=== PATIENT | male | born 1935 | race Caucasian/White ===

== ENCOUNTER 2016-07-22 11:06 | Emergency (ER) | payer MEDICARE ==
--- NOTE | 2016-07-22 11:11 | ER Document Report ---
ED Medical Screen (RME) - General Stated Complaint: SKIN ISSUE Mode of Arrival: Wheelchair Information source: Patient Notes: Patient presents complaining of rash to bilateral feet. Patient states rash is better for 2 months, family member states that his been there for 4 days. Family suspects that it is poison oak as he has recently been doing yard work I have greeted and performed a rapid initial assessment of this patient. A comprehensive ED assessment and evaluation of the patient, analysis of test results and completion of the medical decision making process will be conducted by additional ED providers. TRAVEL OUTSIDE OF THE [place] IN LAST 30 DAYS: No - Related Data Allergies/Adverse Reactions: Penicillins Allergy (Intermediate, Verified 07/22/16 11:09) hives and welts Past Medical History - Past Medical History Cardiac Medical History: Reports: Hx Coronary Artery Disease, Hx Heart Attack, Hx Hypercholesterolemia, Hx Hypertension Pulmonary Medical History: Reports: Hx Pneumonia Renal/ Medical History: Reports: Hx Kidney Stones GI Medical History: Reports: Hx Ulcer Musculoskeltal Medical History: Reports Hx Musculoskeletal Trauma Traumatic Medical History: Reports: Hx Fractures Past Surgical History: Reports: Hx Cardiac Catheterization, Hx Cardiac Surgery - stent placement, Hx Neurologic Surgery - aneurysm, Hx Orthopedic Surgery - left wrist - Immunizations Immunizations up to date: Yes Hx Diphtheria, Pertussis, Tetanus Vaccination: Yes - 10/09/13 Physical Exam - Skin Skin irregularity: Rash - Bilateral feet
[2016-07-22 11:12] VITALS: BP 117/66
--- NOTE | 2016-07-22 11:50 | ER Document Report ---
ED Skin Rash/Insect Bite/Abscs - General Chief Complaint: Skin Problem Stated Complaint: SKIN ISSUE Time seen by provider: 11:35 Mode of Arrival: Wheelchair Information source: Patient, Relative, [facility] Records Notes: This 81-year-old male patient comes emergency room complaining of a two-month history of skin rash to his lower legs and ankles. He reports has gotten worse in the past 2 weeks. He reports prior to onset of rash, he had been out on his riding lawnmower mowing through leaves. He was seen here in September 2012 with similar lesions on his legs complaining of recent exposure to poison oak, he was treated with a diagnosis of superficial phlebitis after a negative venous Doppler. He states he does react to poison martin anytime he is exposed. He has not tried to see his primary care provider about this rash. TRAVEL OUTSIDE OF THE [place] IN LAST 30 DAYS: No - Related Data Allergies/Adverse Reactions: Penicillins Allergy (Intermediate, Verified 07/22/16 11:09) hives and welts Past Medical History - General Information source: Patient - Social History Smoking Status: Unknown if Ever Smoked Cigarette use (# per day): No Chew tobacco use (# tins/day): No Frequency of alcohol use: None Drug Abuse: None Occupation: retired Lives with: Spouse/Significant other Family History: Malignancy Patient has suicidal ideation: No Patient has homicidal ideation: No - Past Medical History Cardiac Medical History: Reports: Hx Coronary Artery Disease, Hx Heart Attack, Hx Hypercholesterolemia, Hx Hypertension Pulmonary Medical History: Reports: Hx Pneumonia EENT Medical History: Reports: None Neurological Medical History: Reports: None Endocrine Medical History: Reports: None Renal/ Medical History: Reports: Hx Kidney Stones GI Medical History: Reports: Hx Ulcer Musculoskeltal Medical History: Reports Hx Musculoskeletal Trauma Psychiatric Medical History: Reports: None Traumatic Medical History: Reports: Hx Fractures Past Surgical History: Reports: Hx Cardiac Catheterization, Hx Coronary Stent, Hx Neurologic Surgery - aneurysm, Hx Orthopedic Surgery - left wrist - Immunizations Immunizations up to date: Yes Hx Diphtheria, Pertussis, Tetanus Vaccination: Yes - 10/09/13 Review of Systems - Review of Systems Constitutional: No symptoms reported EENT: No symptoms reported Cardiovascular: No symptoms reported Respiratory: No symptoms reported Gastrointestinal: No symptoms reported Genitourinary: No symptoms reported Musculoskeletal: No symptoms reported Skin: See HPI Hematologic/Lymphatic: No symptoms reported Neurological/Psychological: No symptoms reported Physical Exam - Vital signs Vitals: Temp Pulse Resp BP Pulse Ox 97.6 F 52 L 19 117/66 98 07/22/16 11:11 07/22/16 11:11 07/22/16 11:11 07/22/16 11:11 07/22/16 11:11 Interpretation: Normal - General General appearance: Appears well, Alert In distress: None - HEENT Head: Normocephalic, Atraumatic Eyes: Normal Pupils: PERRL - Respiratory Respiratory status: No respiratory distress - Cardiovascular Rhythm: Regular - Abdominal Inspection: Normal - Back Back: Normal - Extremities General upper extremity: Normal inspection General lower extremity: Other - The lower legs from just above the ankles down to the top of the feet have an erythematous, dry, scaling rash that suggests a chronic inflammatory process with possibly some cellulitis. - Neurological Neuro grossly intact: Yes - Psychological Associated symptoms: Normal affect, Normal mood - Skin Skin Temperature: Warm Skin Moisture: Dry Skin Color: Normal Course - Vital Signs Vital signs: Temp Pulse Resp BP Pulse Ox 97.6 F 52 L 19 117/66 98 07/22/16 11:11 07/22/16 11:11 07/22/16 11:11 07/22/16 11:11 07/22/16 11:11 Discharge - Discharge Clinical Impression: Rhus dermatitis Cellulitis Qualifiers: Site of cellulitis: extremity Site of cellulitis of extremity: lower extremity Laterality: unspecified laterality Qualified Code(s): L03.119 - Cellulitis of unspecified part of limb Condition: Stable Disposition: HOME, SELF-CARE Additional Instructions: TAKE THE MEDICATION PRESCRIBED. KEEP THE SKIN CLEAN AND MOISTURIZED. FOLLOW UP WITH YOUR DOCTOR THIS WEEK FOR RECHECK. RETURN TO THE EMERGENCY ROOM IF ANY NEW OR WORSENING SYMPTOMS. Prescriptions: Doxycycline Hyclate 100 mg PO BID #20 tablet Prednisone [Deltasone 10 mg Tablet] 10 mg PO ASDIR PRN #27 tablet PRN Reason:
== END 2016-07-22 12:10 | disposition home or self-care (01) ==
LOC: ER 11:06
DX: L23.7 Allergic contact dermatitis due to plants, except food (principal); L03.119 Cellulitis of unspecified part of limb; I25.10 Atherosclerotic heart disease of native coronary artery without angina pectoris; E78.00 Pure hypercholesterolemia, unspecified; I10 Essential (primary) hypertension; Z88.0 Allergy status to penicillin; Z87.442 Personal history of urinary calculi; I25.2 Old myocardial infarction
CPT/HCPCS: 99283

== ENCOUNTER 2018-01-10 09:50 | Inpatient (IN) | payer MEDICARE ==
[2018-01-10] MEDS ORDERED: ASPIRIN 81 MG TABLET, CHEWABLE PO ONE ×2 (10:36→15:26)
--- NOTE | 2018-01-10 10:42 | ER Document Report ---
ED Medical Screen (RME) - General Chief Complaint: Chest Pain Stated Complaint: CHEST PAIN Time Seen by Provider: 01/10/18 10:28 Mode of Arrival: Ambulatory Information source: Patient TRAVEL OUTSIDE OF THE [place] IN LAST 30 DAYS: No - HPI Notes: 01/10/18 10:37 82-year-old male with a medical history of hypertension, hyperlipidemia, CA, cerebral aneurysm, cardiac catheterization with stent presents to the ED by private car for chest pain that started last night, he took a nitro which eased the pain however he still having chest pain. States duration lasts a few seconds and then dissipates, denies any radiation of pain. Patient states pain is 5 out of 10, stabbing and jabbing. Patient's PCP is ORGERIO Tomas. Denies fevers, chills, palpitations, shortness of breath, dyspnea, nausea, vomiting, diarrhea, abdominal pain, hematuria,blurred vision, double vision, loss of vision, speech changes, LH, dizziness, syncope, headaches, wheezing, ST , URI, neck pain, weakness, bowel or bladder dysfunction, saddle anesthesia, numbness or tingling in bilateral upper or lower extremities equally, muscle paralysis, weakness in bilateral upper or lower extremities equally or rash. s1 s2 regular lungs CTA Unable to reproduce left-sided chest pain I have greeted and performed a rapid initial assessment of this patient. A comprehensive ED assessment and evaluation of the patient, analysis of test results and completion of medical decision making process will be conducted by an additional ED providers. - Related Data Allergies/Adverse Reactions: Penicillins Allergy (Intermediate, Verified 01/10/18 09:51) hives and welts Past Medical History - Past Medical History Cardiac Medical History: Reports: Hx Coronary Artery Disease, Hx Heart Attack, Hx Hypercholesterolemia, Hx Hypertension Pulmonary Medical History: Reports: Hx Pneumonia Renal/ Medical History: Reports: Hx Kidney Stones. Denies: Hx Peritoneal Dialysis GI Medical History: Reports: Hx Ulcer Musculoskeltal Medical History: Reports Hx Musculoskeletal Trauma Traumatic Medical History: Reports: Hx Fractures Past Surgical History: Reports: Hx Cardiac Catheterization, Hx Cardiac Surgery - stent placement, Hx Coronary Stent, Hx Neurologic Surgery - aneurysm, Hx Orthopedic Surgery - left wrist - Immunizations Immunizations up to date: Yes Hx Diphtheria, Pertussis, Tetanus Vaccination: Yes - 10/09/13 Physical Exam - Vital signs Vitals: Temp Pulse Resp BP Pulse Ox 97.7 F 54 L 18 189/90 H 96 01/10/18 10:04 01/10/18 10:04 01/10/18 10:04 01/10/18 10:04 01/10/18 10:04 Course - Vital Signs Vital signs: Temp Pulse Resp BP Pulse Ox 97.7 F 54 L 18 189/90 H 96 01/10/18 10:04 01/10/18 10:04 01/10/18 10:04 01/10/18 10:04 01/10/18 10:04 Doctor's Discharge - Discharge Referrals: MELVIN COTTON PA-C [Primary Care Provider] - Follow up as needed
[2018-01-10 11:11] LABS: ABSOLUTE BASOPHILS # (AUTO) 0.1 10^3/uL (0.0-0.2); ABSOLUTE EOSINOPHILS # (AUTO) 0.4 10^3/uL (0.0-0.6); ABSOLUTE LYMPHOCYTES (AUTO) 1.7 10^3/uL (0.5-4.7); ABSOLUTE MONOCYTES (AUTO) 0.5 10^3/uL (0.1-1.4); ABSOLUTE NEUT (AUTO) 4.6 10^3/uL (1.7-8.2); BASOPHILS % (AUTO) 1.1 % (0-2); EOSINOPHILS % (AUTO) 4.9 % (0-6); HEMATOCRIT 41.9 % (37.9-51.0); HEMOGLOBIN 14.4 g/dL (13.5-17.0); LYMPHOCYTES % (AUTO) 23.9 % (13-45); MEAN CORPUSCULAR HEMOGLOBIN 32.4 pg (27.0-33.4); MEAN CORPUSCULAR HGB CONC 34.4 g/dL (32.0-36.0); MEAN CORPUSCULAR VOLUME 94 fl (80-97); MONOCYTES % (AUTO) 6.7 % (3-13); PLATELET COUNT 259 10^3/uL (150-450); RED BLOOD COUNT 4.46 10^6/uL (4.35-5.55); RED CELL DISTRIBUTION WIDTH 14.6 % (11.5-14.0); SEGMENTED NEUTROPHILS % (AUTO) 63.4 % (42-78); TOTAL CELLS COUNTED % (AUTO) 100 %; WHITE BLOOD COUNT 7.3 10^3/uL (4.0-10.5)
--- NOTE | 2018-01-10 11:24 | RADIOLOGY REPORT (SQ) ---
EXAM DESCRIPTION: CHEST SINGLE VIEW COMPLETED DATE/TIME: 01/10/2018 11:07 am REASON FOR STUDY: cp COMPARISON: CT chest 02/22/2011 Two-view chest 07/25/2012 EXAM PARAMETERS: NUMBER OF VIEWS: One view. TECHNIQUE: Single frontal radiographic view of the chest acquired. RADIATION DOSE: NA LIMITATIONS: None. FINDINGS: LUNGS AND PLEURA: No opacities, masses or pneumothorax. No pleural effusion. MEDIASTINUM AND HILAR STRUCTURES: No masses. Contour normal. HEART AND VASCULAR STRUCTURES: Heart normal in size. Normal vasculature. BONES: No acute findings. HARDWARE: None in the chest. OTHER: No other significant finding. IMPRESSION: NO ACUTE RADIOGRAPHIC FINDING IN THE CHEST. TECHNICAL DOCUMENTATION: JOB ID: [id number] [employer]- All Rights Reserved Reading location - IP/workstation name: [email or web address]
[2018-01-10 11:29] LABS: ALANINE AMINOTRANSFERASE 28 U/L (21-72); ALBUMIN 4.5 g/dL (3.5-5.0); ALKALINE PHOSPHATASE 73 U/L (38-126); ANION GAP 14 (5-19); ASPARTATE AMINO TRANSFERASE 37 U/L (17-59); BILIRUBIN,DIRECT 0.5 mg/dL (0.0-0.4); BILIRUBIN,TOTAL 1.2 mg/dL (0.2-1.3); BLOOD UREA NITROGEN 22 mg/dL (7-20); CALCIUM 9.4 mg/dL (8.4-10.2); CARBON DIOXIDE 21 mmol/L (22-30); CHLORIDE 110 mmol/L (98-107); CREATINE KINASE 84 U/L (55-170); GLUCOSE 93 mg/dL (75-110); POTASSIUM 4.9 mmol/L (3.6-5.0); TOTAL PROTEIN 7.8 g/dL (6.3-8.2)
--- NOTE | 2018-01-10 11:36 | EKG REPORT ---
SEVERITY:- BORDERLINE ECG - SINUS RHYTHM BORDERLINE T ABNORMALITIES, INFERIOR LEADS : Confirmed by: Delia Gotti MD 10-Jan-2018 11:36:12
[2018-01-10 11:42] LABS: CREATINE KINASE MB 0.76 ng/mL (<4.55)
[2018-01-10 11:43] LABS: TROPONIN I < 0.012 ng/mL
[2018-01-10 14:37] LABS: APPEARANCE,URINE CLEAR; BILIRUBIN,URINE NEGATIVE (NEGATIVE); COLOR,URINE YELLOW; GLUCOSE, URINE NEGATIVE (NEGATIVE); KETONES,URINE NEGATIVE (NEGATIVE); LEUKOCYTE ESTERASE,URINE NEGATIVE (NEGATIVE); NITRITE,URINE NEGATIVE (NEGATIVE); PROTEIN,URINE NEGATIVE (NEGATIVE); URINE SPECIFIC GRAVITY 1.021
--- NOTE | 2018-01-10 14:52 | ER Document Report ---
ED General - General Mode of Arrival: Ambulatory Information source: Patient TRAVEL OUTSIDE OF THE [place] IN LAST 30 DAYS: No <DYLLAN MONTAGUE - Last Filed: 01/10/18 20:00> <EPIFANIO MESA - Last Filed: 01/11/18 13:23> - General Chief Complaint: Chest Pain Stated Complaint: CHEST PAIN Time Seen by Provider: 01/10/18 10:28 Notes: Patient is an 82 year old male with cardiac stents, CAD, hypertension, hyperlipidemia presents to the emergency department complaining of left sided chest pain onset yesterday. Patient describes the chest pain as an intermittent stabbing that is exacerbated with movement. Patient denies any recent travels, vomiting, diarrhea, cough, congestion or fever. Patient states his stent was placed on 06/29/2011 in [place]. (DYLLAN MONTAGUE) - Related Data Allergies/Adverse Reactions: Penicillins Allergy (Intermediate, Verified 01/10/18 10:39) hives and welts Past Medical History - General Information source: Patient - Social History Smoking Status: Former Smoker Chew tobacco use (# tins/day): No Frequency of alcohol use: None Drug Abuse: None Family History: Malignancy Patient has suicidal ideation: No Patient has homicidal ideation: No - Past Medical History Cardiac Medical History: Reports: Hx Coronary Artery Disease, Hx Heart Attack, Hx Hypercholesterolemia, Hx Hypertension Pulmonary Medical History: Reports: Hx Pneumonia Renal/ Medical History: Reports: Hx Kidney Stones GI Medical History: Reports: Hx Ulcer Musculoskeletal Medical History: Reports Hx Musculoskeletal Trauma Traumatic Medical History: Reports: Hx Fractures Past Surgical History: Reports: Hx Cardiac Catheterization, Hx Cardiac Surgery - stent placement, Hx Coronary Stent, Hx Neurologic Surgery - aneurysm, Hx Orthopedic Surgery - left wrist - Immunizations Immunizations up to date: Yes Hx Diphtheria, Pertussis, Tetanus Vaccination: Yes - 10/09/13 <DYLLAN MONTAGUE - Last Filed: 01/10/18 20:00> Review of Systems - Review of Systems Constitutional: No symptoms reported EENT: No symptoms reported Cardiovascular: See HPI, Chest pain Respiratory: No symptoms reported Gastrointestinal: No symptoms reported Genitourinary: No symptoms reported Male Genitourinary: No symptoms reported Musculoskeletal: No symptoms reported Skin: No symptoms reported Hematologic/Lymphatic: No symptoms reported Neurological/Psychological: No symptoms reported -: Yes All other systems reviewed and negative <DYLLAN MONTAGUE - Last Filed: 01/10/18 20:00> Physical Exam <DYLLAN MONTAGUE - Last Filed: 01/10/18 20:00> <BONITAEPIFANIO - Last Filed: 01/11/18 13:23> - Vital signs Vitals: Temp Pulse Resp BP Pulse Ox 97.7 F 54 L 18 189/90 H 96 01/10/18 10:04 01/10/18 10:04 01/10/18 10:04 01/10/18 10:04 01/10/18 10:04 - Notes Notes: GENERAL: Alert, interacts well. No acute distress. HEAD: Normocephalic, atraumatic. EYES: Pupils equal, round, and reactive to light. Extraocular movements intact. ENT: Oral mucosa moist, tongue midline. NECK: Full range of motion. Supple. Trachea midline. LUNGS: Clear to auscultation bilaterally, no wheezes, rales, or rhonchi. No respiratory distress. HEART: Regular rate and rhythm. No murmurs, gallops, or rubs. No reproducible chest pain to palpation. ABDOMEN: Soft, non-tender. Non-distended. Bowel sounds present in all 4 quadrants. EXTREMITIES: Moves all 4 extremities spontaneously. No edema. No cyanosis. NEUROLOGICAL: Alert and oriented x3. Normal speech. PSYCH: Normal affect, normal mood. SKIN: Warm, dry, normal turgor. No rashes or lesions noted. (DYLLAN MONTAGUE) Course - Laboratory Result Diagrams: 01/10/18 10:50 01/10/18 10:50 <DYLLAN MONTAGUE - Last Filed: 01/10/18 20:00> - Laboratory Result Diagrams: 01/10/18 10:50 01/10/18 10:50 - Diagnostic Test Radiology reviewed: Image reviewed, Reports reviewed - NAD - EKG Interpretation by Nd EKG shows normal: Sinus rhythm Rate: Normal Rhythm: NSR - NORMAL Intervals <BONITAEPIFANIO - Last Filed: 01/11/18 13:23> - Re-evaluation Re-evalutation: 01/10/18 15:13 Inital workup negative, HEART score of 5, advised pt to stay for observation for chest pain r/o. Patient considering at this time. Explained patient would be AMA and explained risks of leaving. 01/10/18 15:25 Patient agrees to stay for observation of CP r/o. 01/10/18 15:33 Dr. Quezada accepts pt (EPIFANIO MESA) - Vital Signs Vital signs: Temp Pulse Resp BP Pulse Ox 98.4 F 78 22 H 171/86 H 97 01/11/18 07:20 01/11/18 07:20 01/11/18 07:20 01/11/18 07:20 01/11/18 07:20 - Laboratory Laboratory results interpreted by me: 01/10/18 01/10/18 01/10/18 10:50 10:50 13:50 RDW 14.6 H Chloride 110 H Carbon Dioxide 21 L BUN 22 H Direct Bilirubin 0.5 H Urine Urobilinogen 2.0 H Discharge <DYLLAN MONTAGUE - Last Filed: 01/10/18 20:00> - Discharge Admitting Provider: Pilar Unit Admitted: Telemetry <EPIFANIO MESA - Last Filed: 01/11/18 13:23> - Discharge Clinical Impression: Chest pain Qualifiers: Chest pain type: unspecified Qualified Code(s): R07.9 - Chest pain, unspecified Disposition: ADMITTED OBSERVATION Scribe Attestation: 01/11/18 13:23 I personally performed the services described in the documentation, reviewed and edited the documentation which was dictated to the scribe in my presence, and it accurately records my words and actions. (EPIFANIO MESA) Scribe Documentation - Scribe Written by Scribpatricio:: Corie Lorenzana, 01/10/2018 15:42 acting as scribe for :: Bonita <DYLLAN MONTAGUE - Last Filed: 01/10/18 20:00>
[2018-01-10] MEDS ORDERED: TEMAZEPAM 7.5 MG CAPSULE PO PRN (16:36)
[2018-01-10] MEDS ORDERED: PROMETHAZINE HCL INJ 25 MG/1 ML VIAL IV PRN (16:36)
[2018-01-10] MEDS ORDERED: ACETAMINOPHEN 325 MG TABLET PO PRN (16:36)
[2018-01-10] MEDS ORDERED: NORMAL SALINE 1000 ML 1,000 ML IV PRN (16:36)
[2018-01-10] MEDS ORDERED: IPRATROPIUM/ALBUTEROL 0.5-2.5 MG/3 ML AMPUL NEB PRN (16:36)
[2018-01-10] MEDS ORDERED: NITROGLYCERIN 0.4 MG/TAB 25 TAB/BOTTLE SL PRN (16:50)
--- NOTE | 2018-01-10 16:59 | PDOC H&P ---
History of Present Illness Admission Date/PCP: 01/10/18 16:01 MELVIN COTTON PA-C Patient complains of: Chest Pain and dizziness x 1day History of Present Illness: MAE ANSSAR SR is a 82 year old male Patient presents emergency room with complaints of chest pain with study yesterday evening. Patient is actually pretty active at 82 years of age. 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 It was also associated with dizziness. He denies any nausea vomiting diaphoresis or radiation of pain anywhere. Said the pain was so bad that he had to cancel his job and he stayed in bed with intermittent chest pain throughout the night. Further seizure activities this morning he started having chest pain again and so decided to come to the emergency room for further evaluation. Patient does have a history of coronary artery disease and has a stent placed in 1999 procedures is been doing relatively well since then. In fact he has not seen a spa director since then. He has been on aspirin as well as atenolol and verapamil in addition to his other medications. He was found to be bradycardic in the emergency room and patient denies any prior history of such. He has not passed out although he was dizzy last night according to reports Past Medical History Cardiac Medical History: Reports: Coronary Artery Disease, Myocardial Infarction , Hyperlipidema, Hypertension Pulmonary Medical History: Reports: Pneumonia Past Surgical History Past Surgical History: Reports: Cardiac Catheterization, Coronary Stent, Orthopedic Surgery - left wrist Social History Information Source: Patient Smoking Status: Former Smoker - Advance Directive Resuscitation Status: Full Code Family History Family History: Malignancy Parental Family History Reviewed: No Children Family History Reviewed: Unknown Sibling(s) Family History Reviewed.: Unknown Medication/Allergy Allergies/Adverse Reactions: Penicillins Allergy (Intermediate, Verified 01/10/18 10:39) hivlonnie and esdrasts Review of Systems All systems: reviewed and no additional remarkable complaints except as stated Physical Exam Vital Signs: Temp Pulse Resp BP Pulse Ox 97.7 F 54 L 14 151/81 H 96 01/10/18 10:04 01/10/18 10:04 01/10/18 12:01 01/10/18 12:01 01/10/18 12:01 General appearance: PRESENT: no acute distress, well-developed, well-nourished Head exam: PRESENT: atraumatic, normocephalic Eye exam: PRESENT: conjunctiva pink, EOMI, PERRLA. ABSENT: scleral icterus Ear exam: PRESENT: normal external ear exam Mouth exam: PRESENT: moist, tongue midline Neck exam: ABSENT: carotid bruit, JVD, lymphadenopathy, thyromegaly Respiratory exam: PRESENT: clear to auscultation kierra. ABSENT: rales, rhonchi, wheezes Cardiovascular exam: PRESENT: bradycardia, +S1, +S2. ABSENT: diastolic murmur, rubs, systolic murmur Pulses: PRESENT: normal dorsalis pedis pul Vascular exam: PRESENT: normal capillary refill GI/Abdominal exam: PRESENT: normal bowel sounds, soft. ABSENT: distended, guarding, mass, organolmegaly, rebound, tenderness Rectal exam: PRESENT: deferred Extremities exam: PRESENT: full ROM. ABSENT: calf tenderness, clubbing, pedal edema Neurological exam: PRESENT: alert, awake, oriented to person, oriented to place , oriented to time, oriented to situation, CN II-XII grossly intact. ABSENT: motor sensory deficit Psychiatric exam: PRESENT: appropriate affect, normal mood. ABSENT: homicidal ideation, suicidal ideation Skin exam: PRESENT: dry, intact, warm. ABSENT: cyanosis, rash Results Laboratory Results: 01/10/18 10:50 01/10/18 10:50 MCV 94 fl (80-97) 01/10/18 10:50 MCH 32.4 pg (27.0-33.4) 01/10/18 10:50 MCHC 34.4 g/dL (32.0-36.0) 01/10/18 10:50 RDW 14.6 % (11.5-14.0) H 01/10/18 10:50 Seg Neutrophils % 63.4 % (42-78) 01/10/18 10:50 Lymphocytes % 23.9 % (13-45) 01/10/18 10:50 Monocytes % 6.7 % (3-13) 01/10/18 10:50 Eosinophils % 4.9 % (0-6) 01/10/18 10:50 Basophils % 1.1 % (0-2) 01/10/18 10:50 Absolute Neutrophils 4.6 10^3/uL (1.7-8.2) 01/10/18 10:50 Absolute Lymphocytes 1.7 10^3/uL (0.5-4.7) 01/10/18 10:50 Absolute Monocytes 0.5 10^3/uL (0.1-1.4) 01/10/18 10:50 Absolute Eosinophils 0.4 10^3/uL (0.0-0.6) 01/10/18 10:50 Absolute Basophils 0.1 10^3/uL (0.0-0.2) 01/10/18 10:50 Chloride 110 mmol/L (98-107) H 01/10/18 10:50 Carbon Dioxide 21 mmol/L (22-30) L 01/10/18 10:50 Anion Gap 14 (5-19) 01/10/18 10:50 Est GFR ( Amer) > 60 (>60) 01/10/18 10:50 Est GFR (Non-Af Amer) > 60 (>60) 01/10/18 10:50 Glucose 93 mg/dL (75-110) 01/10/18 10:50 Calcium 9.4 mg/dL (8.4-10.2) 01/10/18 10:50 Total Bilirubin 1.2 mg/dL (0.2-1.3) 01/10/18 10:50 AST 37 U/L (17-59) 01/10/18 10:50 ALT 28 U/L (21-72) 01/10/18 10:50 Alkaline Phosphatase 73 U/L (38-126) 01/10/18 10:50 Total Protein 7.8 g/dL (6.3-8.2) 01/10/18 10:50 Albumin 4.5 g/dL (3.5-5.0) 01/10/18 10:50 Urine Color YELLOW 01/10/18 13:50 Urine Appearance CLEAR 01/10/18 13:50 Urine pH 6.0 (5.0-9.0) 01/10/18 13:50 Ur Specific [place] 1.021 01/10/18 13:50 Urine Protein NEGATIVE mg/dL (NEGATIVE) 01/10/18 13:50 Urine Glucose (UA) NEGATIVE mg/dL (NEGATIVE) 01/10/18 13:50 Urine Ketones NEGATIVE mg/dL (NEGATIVE) 01/10/18 13:50 Urine Blood NEGATIVE (NEGATIVE) 01/10/18 13:50 Urine Nitrite NEGATIVE (NEGATIVE) 01/10/18 13:50 Ur Leukocyte Esterase NEGATIVE (NEGATIVE) 01/10/18 13:50 Urine WBC (Auto) 1 /HPF 01/10/18 13:50 Urine RBC (Auto) 1 /HPF 01/10/18 13:50 01/10/18 01/10/18 01/10/18 10:50 10:50 15:25 Creatine Kinase 84 CK-MB (CK-2) 0.76 Troponin I < 0.012 < 0.012 EKG Comments: Sinus bradycardia Impressions: Chest X-Ray 01/10/18 10:35 IMPRESSION: NO ACUTE RADIOGRAPHIC FINDING IN THE CHEST. Assessment & Plan - Diagnosis (1) Bradycardia Is this a current diagnosis for this admission?: Yes Plan: Patient is on atenolol and verapamil and this could be the etiology. Both medications will be on hold. Patient will be monitored on telemetry and hopefully his heart rate will come up nicely. Is also possible that this will explain his dizziness and chest pain. (2) CAD (coronary artery disease), [place] coronary artery Qualifiers: [place] vs. transplanted heart: [place] heart Associated angina: with unstable angina Qualified Code(s): I25.110 - Atherosclerotic heart disease of [place] coronary artery with unstable angina pectoris Is this a current diagnosis for this admission?: Yes Plan: Patient has chest pain especially on ambulation and activity with no associated nausea or vomiting. He did complain of dizziness. He is currently chest pain- free because he has been laying in bed. He was also found to be bradycardic which may explain some of the symptoms. Dr. Chanel has been consulted to help manage this patient (3) Chest pain Qualifiers: Chest pain type: unspecified Qualified Code(s): R07.9 - Chest pain, unspecified Is this a current diagnosis for this admission?: Yes Plan: Patient will be placed on telemetry with serial cardiac enzymes ordered. Will schedule for stress test in a.m. if stable and as appropriate - Time Time Spent: 50 to 70 Minutes Medications reviewed and adjusted accordingly: Yes Anticipated discharge: Home Within: within 48 hours - Inpatient Certification Based on my medical assessment, after consideration of the patient's comorbidities, presenting symptoms, or acuity I expect that the services needed warrant INPATIENT care.: Yes Medical Necessity: Need For Continuous Telemetry Monitoring
[2018-01-10] MEDS: HYDRALAZINE HCL INJ/PF 20 MG/1 ML SDV IV PRN (21:10)
[2018-01-10] MEDS: FAMOTIDINE 20 MG TABLET PO SCH (21:10)
[2018-01-10] MEDS ORDERED: (PENDING PHARMACY ID) (Ranitidine Hcl [Zantac 150 Mg Tablet] 150 MG) PO SCH (22:00)
--- NOTE | 2018-01-10 22:31 | PDOC CONSULTATION ---
Consultation Consult Date: 01/10/18 Attending physician:: PALOMA BASHIR Consult reason:: CP, Bradycardia History of Present Illness Admission Date/PCP: 01/10/18 16:36 MELVIN COTTON PA-C Patient complains of: Chest pain History of Present Illness: MAE NASSAR SR is a 82 year old male presents emergency room with complaints of chest pain yesterday evening. Patient is actually pretty active at 82 years of age. 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 It was also associated with dizziness. He denies any nausea vomiting diaphoresis or radiation of pain anywhere. Said the pain was so bad that he had to cancel his job and he stayed in bed with intermittent chest pain throughout the night. This morning he started having chest pain again and so decided to come to the emergency room for further evaluation. Patient does have a history of coronary artery disease and has a stent placed in 1999 procedures is been doing relatively well since then. In fact he has not seen a supervisor opening and picking since then. He has been on aspirin as well as atenolol and verapamil in addition to his other medications. He was found to be bradycardic in the emergency room and patient denies any prior history of such. He has not passed out although he was dizzy last night according to reports. This history was reviewed with the patient and confirmed. Patient claims that he is fairly active. Patient claims that he did not note that his heart rate was slow. He denied any history of sleep apnea, syncope, near syncope. As noted above he did feel somewhat dizzy. Patient denied any sustained palpitations. Past Medical History Cardiac Medical History: Reports: Coronary Artery Disease, Myocardial Infarction , Hyperlipidema, Hypertension Pulmonary Medical History: Reports: Pneumonia Past Surgical History Past Surgical History: Reports: Cardiac Catheterization, Coronary Stent, Orthopedic Surgery - left wrist Social History Information Source: Patient Smoking Status: Former Smoker Last Time Smoked: 1989 Frequency of Alcohol Use: None Hx Recreational Drug Use: No Drugs: None Hx Prescription Drug Abuse: No - Advance Directive Resuscitation Status: Full Code Surrogate healthcare decision maker:: Beth Nassar, phone number [phone] Family History Family History: Malignancy Parental Family History Reviewed: Yes Children Family History Reviewed: Yes Sibling(s) Family History Reviewed.: Yes Medication/Allergy Home Medications: Atenolol [Tenormin] 25 mg PO Q12 01/10/18 Benazepril HCl [Lotensin] 40 mg PO DAILY 01/10/18 Clonidine HCl [Catapres 0.2 mg Tablet] 0.2 mg PO QHS 01/10/18 Isosorbide Mononitrate [Isosorbide Mononitrate ER] 30 mg PO DAILY 01/10/18 Nitroglycerin [Nitrostat] 0.4 mg SL Q5MP PRN 01/10/18 Pravastatin Sodium [Pravachol] 20 mg PO QHS 01/10/18 Ranitidine HCl [Zantac 150 mg Tablet] 150 mg PO Q12 01/10/18 Tamsulosin HCl [Flomax 0.4 mg Cap.sr] 0.4 mg PO DAILY 01/10/18 Verapamil HCl [Calan 120 mg Tablet] 120 mg PO Q12 01/10/18 Allergies/Adverse Reactions: Penicillins Allergy (Intermediate, Verified 01/10/18 10:39) [email or web address] Review of Systems Review of Systems: Please see history of present illness and past medical history as wall. Constitutional: No fever or chills reported. Head : No recent chronic headaches, recent head injury. Eyes: No recent eye pain, diplopia, redness, discharge, acute visual changes. Ears: No recent chronic ear pain, acute hearing loss, ear discharge. Oral cavity: No recent ulcerations, bleeding, oral cavity discomfort. Neck: No recent acute neck pain reported. Hematologic: No recent easy bruising or bleeding. Lymphatic: No recent lymph node enlargement reported. Cardiovascular system review: See history of present illness. Respiratory system review: No hemoptysis or blood clots in the lungs reported. Mild Shortness of breath on exertion Gastrointestinal system review: Negative for any recent acute hematemesis, melena. Genitourinary system review: No recent acute or chronic hematuria, flank pain, UTI etc. reported. Skin system review: Negative for any recent abnormal bruising, no rash, no pruritus reported. Neurologic: No prior history of strokes, mini strokes, seizure disorder. Intermittent dizziness Psychologic: No history of major psychosis or major depression reported. Musculoskeletal: Minor aches and pains reported. No acute joint swelling reported. Endocrine: No recent polyuria, polydipsia, recent heat or cold intolerance. Physical Exam Vital Signs: Temp Pulse Resp BP Pulse Ox 97.9 F 53 L 16 183/82 H 99 01/10/18 19:42 01/10/18 19:42 01/10/18 19:42 01/10/18 19:42 01/10/18 19:42 Exam: GENERAL: well-nourished and in no acute distress. Alert and oriented x3 HEAD: Atraumatic, normocephalic. EYES: Pupils equal round and reactive to light, extraocular movements intact, sclera anicteric, conjunctiva are normal. ENT: TMs normal, nares patent, oropharynx clear without exudates. Moist mucous membranes. No oral ulcerations or bleeding gums noted NECK: supple without lymphadenopathy. Trachea is central. No cervical or axillary lymphadenopathy noted. Carotids are 2+, JVD WNL LUNGS: Respiration seems nonlabored, no significant accessory muscle action noted. Breath sounds clear to auscultation bilaterally and equal noted. No wheezes rales or rhonchi noted. No significant dullness noted on percussion. CHEST: Palpation of the chest wall shows no significant chest wall tenderness. 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 ABDOMEN: Soft, no significant tenderness appreciated, normoactive bowel sounds. No guarding, no rebound. No rigidity noted . No masses appreciated. EXTREMITIES: Pedal pulses are 1-2+, no calf tenderness noted. No clubbing or cyanosis. negative pedal edema noted NEUROLOGICAL: Focused neurological exam showed no significant neurologic deficit. Normal speech, no focal weakness appreciated. PSYCH: Normal mood, normal affect. Judgment and insight within normal limits. SKIN: No significant ecchymosis, skin is noted to be warm. MUSCULOSKELETAL EXAM: No significant acute joint swelling noted. Results EKG Comments: Shows sinus bradycardia, no acute ST-T wave changes are noted. Impressions: Chest X-Ray 01/10/18 10:35 IMPRESSION: NO ACUTE RADIOGRAPHIC FINDING IN THE CHEST. Assessment & Plan - Diagnosis (1) Chest pain Qualifiers: Chest pain type: unspecified Qualified Code(s): R07.9 - Chest pain, unspecified Is this a current diagnosis for this admission?: Yes (2) Bradycardia Is this a current diagnosis for this admission?: Yes (3) CAD (coronary artery disease), [place] coronary artery Qualifiers: [place] vs. transplanted heart: [place] heart Associated angina: angina presence unspecified Qualified Code(s): I25.10 - Atherosclerotic heart disease of [place] coronary artery without angina pectoris Is this a current diagnosis for this admission?: Yes (4) HLD (hyperlipidemia) Qualifiers: Hyperlipidemia type: unspecified Qualified Code(s): E78.5 - Hyperlipidemia , unspecified Is this a current diagnosis for this admission?: Yes (5) Hypertension Qualifiers: Hypertension type: essential hypertension Qualified Code(s): I10 - Essential (primary) hypertension Is this a current diagnosis for this admission?: Yes - Notes Notes: Agree with holding Beta Blockers. NST, ECHO Scheduled Chest pain: Patient has some typical and atypical features of chest pain. Patient has known CAD with prior stent placement. Cardiac enzymes so far has been negative. Electrocardiogram did not show any definitive ST segment changes. Multiple differential diagnoses exist in this patient. In descending order of probability this includes underlying coronary artery disease, gastroesophageal reflux, musculoskeletal pain, referred pain from elsewhere, anxiety panic disorder etc.Patient has significant cardiac risk factors, which indicates that there is a intermediate probability of chest discomfort coming from underlying CAD. Feel that it would need to be evaluated further. Discussed evaluation to assess this. In this regard risk benefits of nuclear stress test and other alternative processes were discussed in detail. The patient prefers to undergo nuclear stress test. The small risk of radiation, myocardial infarction, , cardiac arrhythmias, respiratory distress etc. were discussed. Patient understood the risks and gave informed consent. Nuclear stress test was therefore scheduled. For risk evaluation, patient is also being scheduled for a 2-D echocardiogram. Patient questions were answered. Bradycardia: Seems to be medication induced. Would recommend discontinuing verapamil. May hold atenolol for the time being. Patient to report any syncope , near syncope or sustained palpitations. CAD: Patient status post stent placement in the past. Recommend therapy with aspirin/Plavix, statins, beta-nik and CÉSAR inhibitor/ARB. HTN: Blood pressure goal in this patient is 140/90 or less. This was discussed with the patient. Currently blood pressure under reasonable control. Better medication for this patient are CÉSAR inhibitor/ARB/beta nik etc. discussed side effects of uncontrolled hypertension and also severe hypotension. Hyperlipidemia: LDL goal is less than 70. Recommend statin therapy at least intermediate or high dose, of high potency status. Periodic lipid panel and liver panel is indicated. Patient to report any significant muscle discomfort or other side effects. - Time Time Spent: 30 to 50 Minutes - CODE STATUS was discussed, patient remains full code. Surrogate decision-maker unchanged. Multiple medical problems were addressed. More than 50% of the time spent coordinating care, discussing management plans with involved caregivers. Management plans discussed with involved personnels. Medical decision making was of moderate to high complexity , patient's has multiple comorbidities. Medications reviewed and adjusted accordingly: Yes
[2018-01-11] MEDS: HYDRALAZINE HCL INJ/PF 20 MG/1 ML SDV IV PRN (03:44)
[2018-01-11 06:34] LABS: CHOLESTEROL 124.24 mg/dL (0-200); TRIGLYCERIDES 184 mg/dL (<150)
[2018-01-11 06:46] LABS: DIRECT LDL 55 mg/dL (<100)
[2018-01-11 06:49] LABS: VLDL CHOLESTEROL 36.8 mg/dL (10-31)
[2018-01-11 07:27] VITALS: BP 171/86
[2018-01-11] MEDS ORDERED: (PENDING PHARMACY ID) (Benazepril Hcl [Lotensin] 40 MG) PO SCH (10:00)
[2018-01-11] MEDS ORDERED: BENAZEPRIL HCL 20 MG TABLET PO SCH (10:00)
[2018-01-11] MEDS ORDERED: ISOSORBIDE MONONITRATE 30 MG TAB.ER.24H PO SCH (10:00)
[2018-01-11] MEDS ORDERED: TAMSULOSIN HCL 0.4 MG CAP.SR.24H PO SCH (10:00)
[2018-01-11] MEDS ORDERED: ENOXAPARIN SODIUM INJ 40 MG/0.4 ML DISP.SYRIN SUBCUT SCH (10:00)
[2018-01-11] MEDS ORDERED: ASPIRIN 81 MG TABLET, CHEWABLE PO SCH (10:00)
[2018-01-11] MEDS: FAMOTIDINE 20 MG TABLET PO SCH (10:07)
[2018-01-11] MEDS ORDERED: LANSOPRAZOLE 30 MG TAB.RAP.DR PO SCH (11:50)
--- NOTE | 2018-01-11 17:19 | PDOC DISCHARGE SUMMARY ---
General - Admit/Disc Date/PCP Admission Date/Primary Care Provider: 01/10/18 16:36 MELVIN COTTON PA-C Discharge Date: 01/11/18 - Discharge Diagnosis (1) Bradycardia Is this a current diagnosis for this admission?: Yes (2) CAD (coronary artery disease), [place] coronary artery Is this a current diagnosis for this admission?: Yes (3) Chest pain Is this a current diagnosis for this admission?: Yes - Additional Information Resuscitation Status: Full Code Home Medications: Atenolol [Tenormin] 25 mg PO Q12 01/10/18 Benazepril HCl [Lotensin] 40 mg PO DAILY 01/10/18 Clonidine HCl [Catapres 0.2 mg Tablet] 0.2 mg PO QHS 01/10/18 Isosorbide Mononitrate [Isosorbide Mononitrate ER] 30 mg PO DAILY 01/10/18 Nitroglycerin [Nitrostat] 0.4 mg SL Q5MP PRN 01/10/18 Pravastatin Sodium [Pravachol] 20 mg PO QHS 01/10/18 Ranitidine HCl [Zantac 150 mg Tablet] 150 mg PO Q12 01/10/18 Tamsulosin HCl [Flomax 0.4 mg Cap.sr] 0.4 mg PO DAILY 01/10/18 Verapamil HCl [Calan 120 mg Tablet] 120 mg PO Q12 01/10/18 History of Present Illness History of Present Illness: MAE NASSAR SR is a 82 year old male Patient presents emergency room with complaints of chest pain with study yesterday evening. Patient is actually pretty active at 82 years of age. 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 It was also associated with dizziness. He denies any nausea vomiting diaphoresis or radiation of pain anywhere. Said the pain was so bad that he had to cancel his job and he stayed in bed with intermittent chest pain throughout the night. Further seizure activities this morning he started having chest pain again and so decided to come to the emergency room for further evaluation. Patient does have a history of coronary artery disease and has a stent placed in 1999 procedures is been doing relatively well since then. In fact he has not seen a retirement plan counselor since then. He has been on aspirin as well as atenolol and verapamil in addition to his other medications. He was found to be bradycardic in the emergency room and patient denies any prior history of such. He has not passed out although he was dizzy last night according to reports Hospital Course Hospital Course: Patient was admitted for further evaluation of his chest pain as well as bradycardia. Was seen by Dr. Chanel on consultation. However decided to sign out AGAINST MEDICAL ADVICE before his management was completed and did not wait for his stress test to be done. Signed out despite being advised of possible consequences and adverse effects. Physical Exam Vital Signs: Temp Pulse Resp BP Pulse Ox 98.4 F 78 22 H 171/86 H 97 01/11/18 07:20 01/11/18 07:20 01/11/18 07:20 01/11/18 07:20 01/11/18 07:20 Intake & Output 01/10/18 01/11/18 01/12/18 06:59 06:59 06:59 Intake Total 100 Balance 100 Weight 76.2 kg General appearance: PRESENT: no acute distress, well-developed, well-nourished Head exam: PRESENT: atraumatic, normocephalic Eye exam: PRESENT: conjunctiva pink, EOMI, PERRLA. ABSENT: scleral icterus Ear exam: PRESENT: normal external ear exam Mouth exam: PRESENT: moist, tongue midline Neck exam: ABSENT: carotid bruit, JVD, lymphadenopathy, thyromegaly Respiratory exam: PRESENT: clear to auscultation kierra. ABSENT: rales, rhonchi, wheezes Cardiovascular exam: PRESENT: RRR. ABSENT: diastolic murmur, rubs, systolic murmur Pulses: PRESENT: normal dorsalis pedis pul Vascular exam: PRESENT: normal capillary refill GI/Abdominal exam: PRESENT: normal bowel sounds, soft. ABSENT: distended, guarding, mass, organolmegaly, rebound, tenderness Rectal exam: PRESENT: deferred Extremities exam: PRESENT: full ROM. ABSENT: calf tenderness, clubbing, pedal edema Neurological exam: PRESENT: alert, awake, oriented to person, oriented to place , oriented to time, oriented to situation, CN II-XII grossly intact. ABSENT: motor sensory deficit Psychiatric exam: PRESENT: appropriate affect, normal mood. ABSENT: homicidal ideation, suicidal ideation Skin exam: PRESENT: dry, intact, warm. ABSENT: cyanosis, rash Results Laboratory Results: 01/11/18 01/11/18 05:17 05:17 Triglycerides 184 H Cholesterol 124.24 LDL Cholesterol Direct 55 VLDL Cholesterol 36.8 H HDL Cholesterol 36 L TSH 3.20 01/11/18 05:17 Troponin I < 0.012 Impressions: Chest X-Ray 01/10/18 10:35 IMPRESSION: NO ACUTE RADIOGRAPHIC FINDING IN THE CHEST. Qualifiers - * PATIENT BEING DISCHARGED WITH ANY OF THE FOLLOWING DIAGNOSIS: No Plan Discharge Plan: Patient signed out AGAINST MEDICAL ADVICE Time Spent: Less than 30 Minutes
--- NOTE | 2018-01-11 20:27 | PDOC PROGRESS REPORT ---
Subjective Progress Note for:: 01/11/18 Subjective:: Patient seems to be doing better with gradual improvement. Pt is denying any chest arm or neck discomfort. However patient had nausea and some vomiting this morning therefore he declined to undergo nuclear stress testing. So far however cardiac enzymes has been completely negative. Patient does want to be discharged. Patient denying any PND, orthopnea. Patient denied any sustained palpitations, dizziness, syncope, near syncope. Patient denying any fever chills. Patient denying any other significant discomfort. Patient is maintaining sinus rhythm. Review of systems: Rest review of systems negative. Medications: Medications have been reviewed. Reason For Visit: CHEST PAIN, BRADYCARDIA,CAD Physical Exam Vital Signs: Temp Pulse Resp BP Pulse Ox 98.4 F 78 22 H 171/86 H 97 01/11/18 07:20 01/11/18 07:20 01/11/18 07:20 01/11/18 07:20 01/11/18 07:20 Intake & Output 01/10/18 01/11/18 01/12/18 06:59 06:59 06:59 Intake Total 100 Balance 100 Weight 76.2 kg Exam: GENERAL: well-nourished and in no acute distress. Alert and oriented x3 HEAD: Atraumatic, normocephalic. EYES: Pupils equal round and reactive to light, extraocular movements intact, sclera anicteric, conjunctiva are normal. ENT: TMs normal, nares patent, oropharynx clear without exudates. Moist mucous membranes. No oral ulcerations or bleeding gums noted NECK: supple without lymphadenopathy. Trachea is central. No cervical or axillary lymphadenopathy noted. Carotids are 2+, JVD WNL LUNGS: Respiration seems nonlabored, no significant accessory muscle action noted. Breath sounds clear to auscultation bilaterally and equal noted. No wheezes rales or rhonchi noted. No significant dullness noted on percussion. CHEST: Palpation of the chest wall shows no significant chest wall tenderness. 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 ABDOMEN: Soft, no significant tenderness appreciated, normoactive bowel sounds. No guarding, no rebound. No rigidity noted . No masses appreciated. EXTREMITIES: Pedal pulses are 1-2+, no calf tenderness noted. No clubbing or cyanosis. negative pedal edema noted NEUROLOGICAL: Focused neurological exam showed no significant neurologic deficit. Normal speech, no focal weakness appreciated. PSYCH: Normal mood, normal affect. Judgment and insight within normal limits. SKIN: No significant ecchymosis, skin is noted to be warm. MUSCULOSKELETAL EXAM: No significant acute joint swelling noted. Results Laboratory Results: 01/11/18 01/11/18 05:17 05:17 Triglycerides 184 H Cholesterol 124.24 LDL Cholesterol Direct 55 VLDL Cholesterol 36.8 H HDL Cholesterol 36 L TSH 3.20 01/11/18 05:17 Troponin I < 0.012 EKG Comments: Telemetry shows sinus rhythm with mild intermittent sinus bradycardia, asymptomatic. Impressions: Chest X-Ray 01/10/18 10:35 IMPRESSION: NO ACUTE RADIOGRAPHIC FINDING IN THE CHEST. Assessment & Plan - Diagnosis (1) Chest pain Qualifiers: Chest pain type: unspecified Qualified Code(s): R07.9 - Chest pain, unspecified Is this a current diagnosis for this admission?: Yes (2) Bradycardia Is this a current diagnosis for this admission?: Yes (3) CAD (coronary artery disease), [place] coronary artery Qualifiers: [place] vs. transplanted heart: [place] heart Associated angina: angina presence unspecified Qualified Code(s): I25.10 - Atherosclerotic heart disease of [place] coronary artery without angina pectoris Is this a current diagnosis for this admission?: Yes (4) HLD (hyperlipidemia) Qualifiers: Hyperlipidemia type: unspecified Qualified Code(s): E78.5 - Hyperlipidemia , unspecified Is this a current diagnosis for this admission?: Yes (5) Hypertension Qualifiers: Hypertension type: essential hypertension Qualified Code(s): I10 - Essential (primary) hypertension Is this a current diagnosis for this admission?: Yes - Notes Notes: Chest pain: So far cardiac enzymes has come back negative. Patient has had no further chest pain. Patient does want to be discharged. Patient medications reviewed. Discussed that he could be discharged as long he has close cardiology follow-up and returns to the ER if symptoms recurs. Patient understood this. Patient will schedule a stress test as an outpatient and also a 2D echocardiogram. CAD: Patient status post stent placement in the past. Recommend therapy with aspirin/Plavix, statins, beta-nik and CÉSAR inhibitor/ARB. HTN: Blood pressure goal in this patient is 140/90 or less. This was discussed with the patient. Currently blood pressure under reasonable control. Better medication for this patient are CÉSAR inhibitor/ARB/beta nik etc. discussed side effects of uncontrolled hypertension and also severe hypotension. Hyperlipidemia: LDL goal is less than 70. Recommend statin therapy at least intermediate or high dose, of high potency status. Periodic lipid panel and liver panel is indicated. Patient to report any significant muscle discomfort or other side effects. - Time Time with patient: Greater than 35 minutes - CODE STATUS was discussed, patient remains full code. Surrogate decision-maker unchanged. Multiple medical problems were addressed. More than 50% of the time spent coordinating care, discussing management plans with involved caregivers. Management plans discussed with involved personnels. Medical decision making was of moderate to high complexity, patient's has multiple comorbidities. Medications reviewed and adjusted accordingly: Yes
== END 2018-01-11 11:21 | disposition left against medical advice (07) | DRG 310 ==
LOC: ER 09:50 → EH 16:01 → OBSVTOIN 16:36 → 3W 18:54
PROVIDERS: ADMIT Internal Medicine; ATTEND Internal Medicine
DX: R00.1 Bradycardia, unspecified (principal); R07.9 Chest pain, unspecified; I10 Essential (primary) hypertension; I25.10 Atherosclerotic heart disease of native coronary artery without angina pectoris; R42 Dizziness and giddiness; E78.5 Hyperlipidemia, unspecified; Z79.899 Other long term (current) drug therapy; Z95.5 Presence of coronary angioplasty implant and graft; I25.2 Old myocardial infarction; Z87.891 Personal history of nicotine dependence; Z88.0 Allergy status to penicillin
CPT/HCPCS: 36415; 71045; 80053; 80061; 81001; 82550; 82553; 84443; 84484; 85025; 93005; 93010; 99285; J0360; J1650; J2550; J7030

== ENCOUNTER 2018-07-03 09:34 | Emergency (ER) | payer MEDICARE ==
--- NOTE | 2018-07-03 10:05 | ER Document Report ---
ED Extremity Problem, Lower - General Chief Complaint: Leg Pain Stated Complaint: LEG SWELLING/PAIN Time Seen by Provider: 07/03/18 09:57 Primary Care Provider: MELVIN COTTON PA-C [Primary Care Provider] - Follow up as needed TRAVEL OUTSIDE OF THE [place] IN LAST 30 DAYS: No - HPI Patient complains to provider of: Injury, Pain, Swelling Location: Leg Occurred: Last week Where: Home, Outdoors Onset/Duration: Sudden Quality of pain: Achy, Fullness, Pressure, Throbbing Severity: Moderate Pain Level: 3 Context: Direct blow Recent injury: Yes Associated symptoms: Painful ambulation Exacerbated by: Movement, Walking Relieved by: Nothing Notes: Patient is an 83-year-old male presenting to the emergency room for painful swelling to his left lower leg, states approximately a week ago he was attempting to drill holes through a log when the drill caught the log causing it to spin and impact his leg, he has been ambulate on the leg since but has had increased swelling and pain at the site, denies any fevers, no bleeding, denies pain or injury elsewhere - Related Data Allergies/Adverse Reactions: Penicillins Allergy (Intermediate, Verified 01/10/18 10:39) hives and welts Past Medical History - General Information source: Patient - Social History Smoking Status: Former Smoker Family History: Malignancy Patient has suicidal ideation: No Patient has homicidal ideation: No - Past Medical History Cardiac Medical History: Reports: Hx Coronary Artery Disease, Hx Heart Attack, Hx Hypercholesterolemia, Hx Hypertension Pulmonary Medical History: Reports: Hx Pneumonia Renal/ Medical History: Reports: Hx Kidney Stones. Denies: Hx Peritoneal Dialysis GI Medical History: Reports: Hx Ulcer Musculoskeletal Medical History: Reports Hx Musculoskeletal Trauma Traumatic Medical History: Reports: Hx Fractures Past Surgical History: Reports: Hx Cardiac Catheterization, Hx Cardiac Surgery - stent placement, Hx Coronary Stent, Hx Neurologic Surgery - aneurysm, Hx Orthopedic Surgery - left wrist - Immunizations Immunizations up to date: Yes Hx Diphtheria, Pertussis, Tetanus Vaccination: Yes - 10/09/13 Review of Systems - Review of Systems Constitutional: No symptoms reported EENT: No symptoms reported Cardiovascular: No symptoms reported Respiratory: No symptoms reported Gastrointestinal: No symptoms reported Genitourinary: No symptoms reported Male Genitourinary: No symptoms reported Musculoskeletal: See HPI Skin: No symptoms reported Hematologic/Lymphatic: No symptoms reported Neurological/Psychological: No symptoms reported -: Yes All other systems reviewed and negative Physical Exam - Vital signs Vitals: Temp Pulse Resp BP Pulse Ox 98.0 F 70 20 172/94 H 97 07/03/18 09:46 07/03/18 09:46 07/03/18 09:46 07/03/18 09:46 07/03/18 09:46 Interpretation: Hypertensive - General General appearance: Appears well, Alert - HEENT Head: Normocephalic, Atraumatic Eyes: Normal Pupils: PERRL - Respiratory Respiratory status: No respiratory distress Chest status: Nontender Breath sounds: Normal Chest palpation: Normal - Cardiovascular Rhythm: Regular Heart sounds: Normal auscultation Murmur: No - Abdominal Inspection: Normal Distension: No distension Bowel sounds: Normal Tenderness: Nontender Organomegaly: No organomegaly - Back Back: Normal, Nontender - Extremities General upper extremity: Normal inspection, Nontender, Normal color, Normal ROM, Normal temperature General lower extremity: Normal ROM. No: Peter's sign Notes: Left lower extremity with moderate swelling, mild erythema, mild increased warmth, particularly at the distal leg medially, no pain with range of motion at the knee or ankle, distal sensation and motor is intact with 2+ DP pulses and brisk capillary refill - Neurological Neuro grossly intact: Yes Cognition: Normal Orientation: AAOx4 Devin Coma Scale Eye Opening: Spontaneous Devin Coma Scale Verbal: Oriented Devin Coma Scale Motor: Obeys Commands [place] Coma Scale Total: 15 Speech: Normal Motor strength normal: LUE, RUE, LLE, RLE Sensory: Normal - Psychological Associated symptoms: Normal affect, Normal mood - Skin Skin Temperature: Warm Skin Moisture: Dry Skin Color: Normal Course - Re-evaluation Re-evalutation: 07/03/18 11:05 Imaging findings discussed with patient at bedside which are unremarkable, patipatricio nt does have a little erythema and swelling to the lower extremity therefore I believe he might have a mild cellulitis, will start on antibiotics, advised follow-up with primary care or return if symptoms worsen, patient and spouse at bedside acknowledge understanding and agreement with this plan - Vital Signs Vital signs: Temp Pulse Resp BP Pulse Ox 98.0 F 70 20 172/94 H 97 07/03/18 09:46 07/03/18 09:46 07/03/18 09:46 07/03/18 09:46 07/03/18 09:46 - Diagnostic Test Radiology reviewed: Image reviewed, Reports reviewed Discharge - Discharge Clinical Impression: Lower extremity cellulitis Qualifiers: Laterality: left Qualified Code(s): L03.116 - Cellulitis of left lower limb Condition: Stable Disposition: HOME, SELF-CARE Instructions: Cellulitis ([facility]) Additional Instructions: Follow up with your primary care provider in one to 2 days. Return to the emergency room immediately if symptoms worsen or any additional concerns. Prescriptions: Sulfamethoxazole/Trimethoprim [Bactrim Ds Tablet] 1 each PO BID #20 tablet Referrals: MELVIN COTTON PA-C [Primary Care Provider] - Follow up as needed
--- NOTE | 2018-07-03 10:59 | RADIOLOGY REPORT (SQ) ---
EXAM DESCRIPTION: TIBIA FIBULA LEFT COMPLETED DATE/TIME: 07/03/2018 10:46 am REASON FOR STUDY: pain/swelling COMPARISON: None. NUMBER OF VIEWS: Two views. TECHNIQUE: Two radiographic images acquired of the left tibia and fibula to include the knee and ank le in at least one projection. LIMITATIONS: None. FINDINGS: MINERALIZATION: Osteopenic BONES: No acute fracture or dislocation. No worrisome bone lesions. Small plantar and dorsal calcan eal spurs. SOFT TISSUES: No obvious swelling or foreign body. OTHER: Mild medial compartment joint space narrowing left knee. IMPRESSION: NEGATIVE STUDY OF THE LEFT TIBIA AND FIBULA. NO RADIOGRAPHIC EVIDENCE OF ACUTE INJURY. TECHNICAL DOCUMENTATION: JOB ID: [id number] [employer]- All Rights Reserved Reading location - IP/workstation name: [email or web address]
[2018-07-03 11:23] VITALS: BP 161/83
== END 2018-07-03 11:23 | disposition home or self-care (01) ==
LOC: ER 09:34
DX: L03.116 Cellulitis of left lower limb (principal); I25.10 Atherosclerotic heart disease of native coronary artery without angina pectoris; E78.00 Pure hypercholesterolemia, unspecified; I10 Essential (primary) hypertension; I25.2 Old myocardial infarction; Z87.442 Personal history of urinary calculi; Z88.0 Allergy status to penicillin
CPT/HCPCS: 99283